=== PATIENT | male | born 1980 | race Caucasian/White ===

== ENCOUNTER 2017-11-19 09:27 | Emergency (ER) | payer OTHER ==
[~2017-11-19] VITALS: Ht 175.3 cm; Wt 63.5 kg
[~2017-11-19 09:27] MED LIST: FLEXERIL PO; HYDROCODONE-APA1 TA1 PO; NORCO 5-325 TA1 EACH PO; PHENERGAN 25 MG25 M1 PO
[2017-11-19] MEDS ORDERED: NORCO 5-325 TA1 EACH PO (11:35)
[2017-11-19] MEDS ORDERED: FLEXERIL PO (11:35)
[2017-11-19 11:42] VITALS: BP 138/85
== END 2017-11-19 11:42 | disposition home or self-care (01) ==
LOC: M.ERS 09:27
DX: M62.830 Muscle spasm of back (principal); W18.39XA Other fall on same level, initial encounter; Y93.89 Activity, other specified; Y92.89 Other specified places as the place of occurrence of the external cause; Y99.8 Other external cause status